=== PATIENT | male | born 1985 | race Caucasian/White ===

== ENCOUNTER 2024-05-11 08:22 | Day surgery (SDC) | payer BC ==
[2024-05-11] MEDS: Lactated Ringers 1,000 ML IV SCH (08:45)
[2024-05-11] MEDS ORDERED: Lidocaine 2% 5 ML SDV ONE (09:42)
[2024-05-11] MEDS ORDERED: propofoL 500 MG/50 ML 50 ML ONE ×2 (09:42→10:20)
[2024-05-11] MEDS ORDERED: Ketamine HCL/NACL, ISO-OSM 50 MG/5 ML Syringe ONE (10:08)
[2024-05-11] MEDS ORDERED: Ketamine 500 mg/10 ML MDV ONE (10:08)
[2024-05-11] MEDS ORDERED: dexmedeTOMIDine HCl 200 MCG/2 ML SDV ONE (10:34)
[2024-05-11] MEDS ORDERED: Lactated Ringers 1,000 ML IV SCH (11:00)
== END 2024-05-11 11:15 | disposition home or self-care (01) ==
LOC: MW.SDS 08:22
PROVIDERS: ATTEND Surgery
DX: K20.90 Esophagitis, unspecified without bleeding (principal); K58.0 Irritable bowel syndrome with diarrhea; K44.9 Diaphragmatic hernia without obstruction or gangrene; E03.9 Hypothyroidism, unspecified; Z87.891 Personal history of nicotine dependence; Z83.79 Family history of other diseases of the digestive system; Z86.0100 Personal history of colon polyps, unspecified
CPT/HCPCS: 43239; 45378; J2704; J7120; 00813; J3490

== ENCOUNTER 2024-05-19 13:28 | Emergency (ER) | payer BC | END 2024-05-19 18:53 | disposition left against medical advice (07) | LOC: MW.ED 13:28 | DX: Z53.21 Procedure and treatment not carried out due to patient leaving prior to being seen by health care provider (principal) ==